=== PATIENT | female | born 1945 | race Caucasian/White ===

== ENCOUNTER 2024-11-01 14:20 | Outpatient (CLI) | payer MEDICARE, SELFPAY ==
--- NOTE | 2024-11-01 14:15 | RT.EKG_ITS ---
APPROVED REPORT Exam: Resting ECG Reason for Exam: Htn, hyperlipidemia, on amiodarone Patient Location: O HR:65 bpm ECG Measurements Heart Rate 65 AXIS MA 257 P -5 QRSd 104 QRS -27 QT 462 T 44 QTc 481 Conclusion Sinus rhythm...normal P axis, V-rate 50- 99 Prolonged MA interval...MA >220, V-rate 50- 90 Inferior infarct, old...Q >35mS, II III aVF Anteroseptal infarct, age indeterminate...Q >35mS, T neg, V1-V2
== END 2024-11-01 14:21 | disposition home or self-care (01) ==
LOC: DI.CARD 14:25
PROVIDERS: PCP Internal Medicine; Referring Provider Internal Medicine; Visit Provider Registered Nurse
DX: I10 Essential (primary) hypertension (principal)
CPT/HCPCS: 93010

== ENCOUNTER → 2024-11-01 14:20 | Outpatient (BNVA) | payer MEDICARE, SELFPAY | PROVIDERS: PCP Internal Medicine; Referring Provider Internal Medicine; Visit Provider Registered Nurse | DX: I47.10 Supraventricular tachycardia, unspecified (principal); I25.10 Atherosclerotic heart disease of native coronary artery without angina pectoris | CPT/HCPCS: 93005; 99205 ==

== ENCOUNTER 2025-04-20 00:25 | Outpatient (CLI) | payer MEDICARE, SELFPAY ==
--- NOTE | 2025-04-20 07:30 | DI.US_ITS ---
APPROVED REPORT EXAM: Comprehensive 2D, Doppler, and color-flow Echocardiogram Patient Location: Out-Patient Stone Cleaner: Annette Elder RDCS (AE) Indications: CAD, SVT Other Information Study Quality: Adequate Conclusion Normal left ventricular wall thickness and chamber size. Ejection fraction of 55 to 60%. Wall motion is normal Normal right ventricular size and function Both atria are normal in size There are no structural valvular abnormalities Mild aortic and mitral regurgitation Trace tricuspid regurgitation Estimated right ventricular systolic pressure is 35 mmHg Borderline dilated ascending aorta Wall motion Left Ventricle Left ventricle is mildly dilated. The left ventricular systolic function is normal. The left ventricular ejection fraction is within the normal range. There is normal left ventricular wall thickness. There is normal LV segmental wall motion. There is no ventricular septal defect visualized. LVEF is 58%. Right Ventricle The right ventricle is normal size. The right ventricular systolic function is normal. Atria The left atrium size is normal. The right atrium size is normal. The interatrial septum is intact with no evidence for an atrial septal defect. Aortic Valve The aortic valve is normal in structure. Aortic valve is trileaflet. There is no aortic valvular stenosis. Mild aortic regurgitation. Mitral Valve The mitral valve is normal in structure. No evidence of mitral valve stenosis. Mild mitral regurgitation. Tricuspid Valve The tricuspid valve is normal in structure. There is no tricuspid valve stenosis. Trace tricuspid regurgitation. The RVSP is 35.3 mmHg. Pulmonic Valve The pulmonary valve is normal in structure. There is no pulmonic valvular stenosis. Trace pulmonic regurgitation. Great Vessels The aortic root is normal in size. The ascending aorta is mildly dilated. Aortic arch is not well visualized. IVC is normal in size and collapses >50% with inspiration. Pericardium There is no pericardial effusion. 2D Dimensions IVSD d PLAX 0.90 cm F: 0.6-1.0 Ao Root d 3.31 cm F: 2.7 - 3.3 LVPW d PLAX 0.90 cm F: 0.6 - 1.0 Ao Asc Diam d 3.39 cm F: 2.3 - 3.1 LVID d PLAX 5.40 cm F: 3.8 - 5.2 LVDs 3.75 cm F: 2.2 - 3.5 LV EF Teichholz 57.0 % FS 30.19 % LV EDV (Teich) 139.9 mL LV ESV (Teich) 60.2 mL M-Mode TAPSE 2.69 cm (M/F) >1.7 Auto EF LV EDV A4C 110.6 mL LV EDV A2C 109.9 mL LV EDV BP 111.1 mL LV ESV A4C 48.3 mL LV ESV A2C 44.4 mL LV ESV BP 46.5 mL LVEF(%) A4C 56.3 % LVEF(%) A2C 59.6 % LVEF(%) BP 58.1 % LV SV A4C 62.3 ml LV SV A2C 65.5 ml LV SV BP 64.5 ml LV CO A4C 3.5 L/min LV CO A2C 3.6 L/min LV CO BP 3.6 L/min HR A4C 56.23 BPM HR A2C 55.13 BPM LV EDV Index (BP) LA Volume LA Length A4C 5.6 cm LA Length A2C 5.4 cm LA Area A4C s 19.90 cm2 LA Area A2C s 20.07 cm2 LA Vol A4C A-L 60.11 mL LA Vol A2C A-L 63.81 mL LA Vol Biplane A-L 63.3 mL LA Vol/BSA A4C A-L LA Vol/BSA A2C A-L LA Vol/BSA BP A-L 32.8 mL/m2 LA Vol A4C MOD 55.5 mL LA Vol A2C MOD 60.2 mL LA Vol BP MOD 58.7 mL RA Volume RA Area A4C 13.1 cm2 RA ESV A4C (A-L) 29.7mL RA Vol/BSA A4C A-L RA Length A4C 4.9 cm RA ESV A4C (MOD) 26.1mL LV Diastology MV E' medial 0.056 (>0.07 m/s) MV E Vmax 0.65 (0.4-1.3 m/s) MV E/E' MED 11.61 (<14) MV A Vmax 0.55 (0.4-1.3 m/s) MV E' lateral 0.077 (>0.1 m/s) E/A Ratio 1.2 MV E/E' LAT 8.50 (<14) MV E' Average 0.066 m/s MV E/E'(average) 9.82 Aortic Valve AoV Vmax 1.31 m/s LVOT Vmax 1.09 m/s AoV Peak Grad 38.1 mmHg LVOT Peak Grad 4.8 mmHg AoV Area (Vmax) 2.27 cm2 LVOT VTI 0.315 m AoV VTI 0.355 m LVOT Mean Grad 2.5 mmHg AoV Mean Harry. 0.82 m/s LVOT SV 85.65 mL AoV Mean Grad 3.2 mmHg LVOT Diam s 1.85 cm AoV Area (VTI) 2.41 cm2 AV Regurg Peak Gr. 6.87 mmHg Velocity Ratio 0.83 AR Decel Gentry 2.5m/sec2 AR DT 1669 msec AR PHT 484 msec AR Vmax 4.16 m/s Mitral Valve MV DT 153 (160-240 msec) MV Vmax TIPS 0.56 m/s MV Mean Grad 0.6 (<2mmHg) MV VTI 0.249 m Pulmonary Valve PV Vmax 0.84 (0.5-1.5 m/s) RVOT Vmax 0.57 m/s PV Peak Grad 2.8 mmHg RVOT Peak Gr. 1.3 mmHg PV Mean Harry 0.60 m/s RVOT VTI 0.164 m PV Mean Grad 1.6 mmHg RVOT Mean Gr. 0.8 mmHg Tricuspid Valve RA Pressure 3.00 mmHg TR Vmax 2.84 m/s TV S' 0.14 m/s TR Peak Grad 32.3 mmHg RVSP (TR) 35.3 mmHg
== END 2025-04-20 00:45 ==
LOC: DI 00:25
PROVIDERS: PCP Internal Medicine; Visit Provider Internal Medicine Cardiovascular Disease
DX: I25.10 Atherosclerotic heart disease of native coronary artery without angina pectoris (principal)
CPT/HCPCS: 93306

== ENCOUNTER → 2025-05-02 14:14 | Outpatient (BNVA) | payer MEDICARE, SELFPAY | PROVIDERS: PCP Internal Medicine; Referring Provider Internal Medicine; Visit Provider Registered Nurse | DX: I25.10 Atherosclerotic heart disease of native coronary artery without angina pectoris (principal); I47.10 Supraventricular tachycardia, unspecified; I10 Essential (primary) hypertension | CPT/HCPCS: 99214 ==